=== PATIENT | female | born 2005 | race Caucasian/White ===

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

== ENCOUNTER 2024-12-09 01:39 | Emergency (ER) | payer OTHER ==
[2024-12-09] MEDS ORDERED: Sodium Chloride 0.9% 10 ML Syringe FLUSH PRN (02:14)
[2024-12-09] MEDS: Prochlorperazine 10 MG/2 ML SDV IVPUSH ONE (02:27)
[2024-12-09 02:31] LABS: BASOPHILS ABSOLUTE AUTO 0.0 x10-3/uL (0.0-0.1); BASOPHILS PERCENT AUTO 0.2 % (0.2-1.5); EOSINOPHILS ABSOLUTE AUTO 0.0 x10-3/uL (0.0-0.8); EOSINOPHILS PERCENT AUTO 0.2 % (0.6-8.1); LYMPHOCYTES ABSOLUTE AUTO 1.0 x10-3/uL (1.0-4.4); LYMPHOCYTES PERCENT AUTO 10.6 % (18.4-52.1); MEAN PLATELET VOLUME 7.7 fL (7.1-12.4); MONOCYTES ABSOLUTE AUTO 0.6 x10-3/uL (0.3-1.0); MONOCYTES PERCENT AUTO 6.6 % (4.4-15.7); NEUTROPHILS ABSOLUTE AUTO 7.5 x10-3/uL (1.5-6.3); NEUTROPHILS PERCENT AUTO 82.4 % (30.8-76.2); PLATELET COUNT,PLT 203 x10(3)uL (151-488); RED BLOOD CELL COUNT 4.66 x10(6)uL (3.60-5.20); RED CELL DISTRIBUTION WIDTH 12.8 % (12.3-16.5); WHITE BLOOD CELL COUNT,WBC 9.1 x10-3/uL (3.0-10.3)
[2024-12-09 02:38] LABS: A/G RATIO 1.3; ALANINE AMINOTRANSFERASE,ALT 29 U/L (12-36); ASPARTATE AMNIOTRANSFERASE,AST 25 IU/L (5-25); BILIRUBIN TOTAL 1.0 mg/dL (0.1-1.3); BLOOD UREA NITROGEN,BUN 10 mg/dL (7-18); CARBON DIOXIDE,CO2 23 mmol/L (21-32); CHLORIDE,CL 103 mmol/L (100-110); CREATININE 1.2 mg/dL (0.55-1.02); EST CRCL DRUG DOSING (CG) 72.72 mL/min; ESTIMATED GFR 66 mL/min (>60); GLUCOSE RANDOM 104 mg/dL (80-116); POTASSIUM,K 2.9 mmol/L (3.5-5.3); PROTEIN TOTAL,TP 7.4 g/dL (6.0-8.0); SODIUM,NA 139 mmol/L (135-145)
[2024-12-09] MEDS: Iopamidol 755 Mg/ML 100 ML Bottle IV SCH (02:40)
[2024-12-09 02:46] LABS: GLUCOSE,URINE NORMAL (NORMAL); OCCULT BLOOD,URINE NEGATIVE (NEGATIVE)
[2024-12-09 02:47] LABS: APPEARANCE,URINE CLEAR (CLEAR)
[2024-12-09 02:55] LABS: SQUAMOUS EPITHELIAL CELLS,UR RARE (NS,R,O)
[2024-12-09] MEDS: Potassium Chloride 20 MEQ Tab.ER PO ONE (03:23)
== END 2024-12-09 03:30 | disposition home or self-care (01) ==
LOC: FB.ED 01:39
DX: A08.4 Viral intestinal infection, unspecified (principal); N39.0 Urinary tract infection, site not specified; E87.6 Hypokalemia; Z79.899 Other long term (current) drug therapy
CPT/HCPCS: 36415; 74177; 80053; 81001; 83690; 85025; 96361; 96374; 96375; 99284; A9270; J0780; J2270; J7030; Q9967